=== PATIENT | male | born 1975 | race Native Hawaiian/Other Pacific Islander ===

== ENCOUNTER 2017-01-30 21:32 | Emergency (ER) | payer SELFPAY ==
[2017-01-30] MEDS ORDERED: HYDROmorphone 1 mg/ml ISec ONE ×3 (21:52→23:52)
[2017-01-30] MEDS ORDERED: HYDROmorphone 1 mg/ml ISec IVP STA ×3 (21:55→23:50)
[2017-01-30] MEDS ORDERED: Sodium Chloride 0.9% 1,000 ML IV ONE (21:55)
--- NOTE | 2017-01-30 21:57 | C.PDOC ---
History Of Present Illness 39 year old male presents to the ED with complaints of sudden onset mid- epigastric abdominal pain beginning about two hours prior to arrival. Patient states he was find, drinking, and eating normally at a constitution party when the symptoms began. He notes difficulty breathing and moving due to the pain. Patient denies any dysuria, fever, chills, diarrhea, or constipation. Chief Complaint (Nursing): Abdominal Pain History Per: Patient History/Exam Limitations: no limitations Onset/Duration Of Symptoms: Hrs, Sudden Onset Current Symptoms Are (Timing): Still Present Severity: Severe Pain Scale Rating Of: 8 Location Of Pain/Discomfort: Epigastric Quality Of Discomfort: "Pain" (patient describes as a "grabbing" pain) Associated Symptoms: denies: Fever, Chills, Vomiting, Diarrhea, Constipation, Urinary Symptoms Exacerbating Factors: Movement, Deep Breaths Recent travel outside of the [place]: No Past Medical History Reviewed: Historical Data, Nursing Documentation, Vital Signs Vital Signs: Last Vital Signs Temp 98 F 01/30/17 21:47 Pulse 86 01/31/17 01:08 Resp 16 01/31/17 01:08 BP 184/118 H 01/31/17 01:08 Pulse Ox 99 01/31/17 01:13 Family History: States: No Known Family Hx - Social History Hx Alcohol Use: No Hx Substance Use: No Review Of Systems Constitutional: Negative for: Fever, Chills, Sweats Cardiovascular: Negative for: Chest Pain, Palpitations Respiratory: Negative for: Cough, Shortness of Breath Gastrointestinal: Positive for: Abdominal Pain (mid-epigastric ). Negative for : Vomiting, Diarrhea, Constipation Genitourinary: Negative for: Dysuria, Hematuria Physical Exam - Physical Exam Appears: Non-toxic, In Acute Distress Skin: Normal Color, Warm, Dry Head: Atraumatic Eye(s): bilateral: Normal Inspection, PERRL, EOMI Oral Mucosa: Moist Neck: Normal ROM, Supple Chest: Symmetrical, No Deformity Cardiovascular: Rhythm Regular Respiratory: Normal Breath Sounds, No Rales, No Rhonchi, No Stridor, No Wheezing Gastrointestinal/Abdominal: No Bowel Sounds (quit bowel sounds), No Soft, Tenderness (diffuse tenderness), Distention, Guarding, No Rebound, Other (rigid) Extremity: Normal ROM, No Tenderness Pulses: Left Carotid: Normal, Right Carotid: Normal, Left Radial: Normal, Right Radial: Normal, Left Femoral: Normal, Right Femoral: Normal, Left Dorsalis Pedis : Decreased, Right Dorsalis Pedis: Decreased Neurological/Psych: Oriented x3, Normal Speech, Normal Cognition Gait: Steady ED Course And Treatment - Laboratory Results Result Diagrams: 01/30/17 21:59 01/30/17 21:59 Lab Interpretation: No Acute Changes ECG: Interpreted By Me ECG Rhythm: Sinus Rhythm (with LVH), R BBB (incomplete), ST/T Changes ECG Interpretation: Abnormal O2 Sat by Pulse Oximetry: 99 Pulse Ox Interpretation: Normal - Other Rad Obstructive series X-Ray: Interpreted by Me Interpretation: No evidence of obstruction or free air - CT Scan/US CT ABDOMEN/PELVIS IV CONTRAST Other Rad Studies (CT/US): Read By Radiologist, Radiology Report Reviewed CT/US Interpretation: EXAM: CT Abdomen and Pelvis With Intravenous Contrast. CLINICAL HISTORY: 39 years old, male; Pain; Abdominal pain; Generalized. TECHNIQUE: Axial computed tomography images of the abdomen and pelvis with intravenous contrast. This CT. exam was performed using one or more of the following dose reduction techniques: automated. exposure control, adjustment of the mA and/or kV according to patient size, and/or use of iterative. reconstruction technique. Coronal and sagittal reformatted images were created and reviewed. CONTRAST: 100 mL of VISIPAQUE administered intravenously. EXAM DATE/TIME: 01/30/2017 10:38 PM. COMPARISON: No relevant prior studies available. FINDINGS: There is an aortic dissection in the descending thoracic aorta. The superior extent cannot be. determined on this study . The dissection extends through the entire abdominal aorta and into left. common iliac artery and external iliac artery. The celiac axis, SMA, renal arteries, SUDHIR are all well. perfused. The dissection flap extends into the superior mesenteric artery. There is no periaortic fluid or stranding. PA LEONARDO | Preliminary Radiology Report. CERTIFIED COURT INTERPRETER (QA) DISCREPANCY? If there is a discrepancy between the preliminary and final interpretation, please notify [facility] via [email or web address]. If you do not have access to our QA portal, call our QA team at [phone]. CONFIDENTIALITY STATEMENT. This report is intended only for the use of the referring physician, and only in accordance with law, If you received this in error, call [phone]. Page 2 of 2. No aortic aneurysm. The liver is decreased in attenuation consistent with fatty infiltration. The spleen is normal. The pancreas is normal. No gallstones. No hydronephrosis or perinephric stranding. Right renal cyst. The bowel appears normal. A normal appendix is identified coronal images 58 through 66. IMPRESSION: Dissection involving the distal thoracic descending aorta, entire abdominal aorta, and left common. and external iliac arteries and SMA. The superior extent of the dissection cannot be determined on. this study (abdomen pelvis scanned, not chest). This could be either an acute or chronic finding. No. periaortic fluid. Progress Note: Patient continues to have severe pain associated with critically elevated blood pressure. Pain improved after several doses of Dilaudid IV. Labetolol 40mg IV given without results. IV Esmolol ordered. BP 184/118 on the left and 198/119 on the right. - Physician Consult Information Outcome Of Conversation: Case discussed with Dr Santoro Vascular government operations consultant at [facility] [place] [facility] [place]. He will accept patient for transfer. 1:20 [place] [facility] [place] [facility] [place]. Disposition - Disposition Disposition: Trans to Other Acute Care Hosp Disposition Time: 01:21 Condition: CRITICAL - Clinical Impression Clinical Impression: Aortic dissection, thoracoabdominal - Scribe Statement The provider has reviewed the documentation as recorded by the Scribe Jo Ann Correia All medical record entries made by the Tongibe were at my direction and personally dictated by me. I have reviewed the chart and agree that the record accurately reflects my personal performance of the history, physical exam, medical decision making, and the department course for this patient. I have also personally directed, reviewed, and agree with the discharge instructions and disposition.
[2017-01-30 22:02] LABS: BASO % 0.2 % (0.0-2.0); EOS # 0.2 K/uL (0.0-0.7); HEMATOCRIT 44.1 % (35.0-51.0); LYMPH # 5.1 K/uL (1.0-4.3); LYMPH % 41.2 % (20.0-40.0); MEAN CELL VOLUME 83.9 fL (80.0-94.0); MEAN CORPUSCULAR HEMOGLOBIN 28.5 pg (27.0-31.0); MEAN PLATELET VOLUME 7.5 fL (7.2-11.7); MONO # 0.8 K/uL (0.0-0.8); MONO % 6.6 % (0.0-10.0); RED CELL DISTRIBUTION WIDTH 12.6 % (11.5-14.5); WHITE BLOOD COUNT 12.4 K/uL (4.8-10.8)
[2017-01-30 22:13] LABS: CHLORIDE 97 mmol/L (98-107); POTASSIUM 3.5 mmol/L (3.6-5.2); SODIUM 140 mmol/L (132-148)
[2017-01-30 22:15] LABS: AST/SGOT 82 U/L (17-59); BILIRUBIN,TOTAL 0.7 mg/dL (0.2-1.3); CARBON DIOXIDE 27 mmol/L (22-30); GFR AFRICAN-AMERICAN > 60
[2017-01-30 22:16] LABS: ALB/GLOB RATIO 1.5 (1.0-2.1); ALKALINE PHOSPHATASE 57 U/L (38-126); ALT/SGPT 133 U/L (21-72); BLOOD UREA NITROGEN 21 mg/dL (9-20); CALCIUM 9.4 mg/dl (8.6-10.4); GLUCOSE,RANDOM 122 mg/dL (75-110); TOTAL PROTEIN 8.2 g/dL (6.3-8.3)
[2017-01-30] MEDS ORDERED: Iohexol 240 (50 ml) PO ONE (22:39)
[2017-01-30] MEDS ORDERED: Iohexol 240 (50 ml) ONE (22:46)
[2017-01-30] MEDS ORDERED: Iodixanol 320 MG/ML 100 ML BOTTLE IV ONE (23:24)
[2017-01-31] MEDS ORDERED: Iodixanol 320 mg/ml 150 ml Bottle IV ONE (00:05)
[2017-01-31] MEDS ORDERED: Labetalol 25mg/5ml Syringe IV STA ×2 (00:25→01:07)
[2017-01-31] MEDS ORDERED: Labetalol 25mg/5ml Syringe ONE ×2 (00:26→00:50)
[2017-01-31 00:53] VITALS: RESP 16
[2017-01-31 01:11] VITALS: O2SAT 99
[2017-01-31] MEDS ORDERED: Esmolol 2,500 MG in Sodium Chloride 0.9% 240 ML IV SCH (01:15)
[2017-01-31] MEDS ORDERED: Esmolol 2,500 MG in Dextrose 5% In Water 240 ML IV SCH (01:15)
[2017-01-31] MEDS ORDERED: HYDROmorphone 1 mg/ml ISec ONE (01:26)
[2017-01-31 01:35] VITALS: TEMP 97.6
[2017-01-31] MEDS ORDERED: HYDROmorphone 1 mg/ml ISec IVP STA (01:51)
[2017-01-31 01:59] VITALS: BP 184/89; PULSE 85
--- NOTE | 2017-01-31 07:37 | RAD ---
Abdomen four views History: Abdominal pain. Comparison: None available. Findings: Mild venous congestion. Lobulated opacity projects over the left lung apex, possibly external. Clinical correlation. Mild atelectasis at the right lung base. Heart size within normal limits. Few mildly dilated loops of small bowel seen within the upper to mid abdomen. Fecal retention in the colon. Few calcifications noted within the lower pelvis. Impression: Nonspecific bowel gas pattern with a few mildly dilated loops of small bowel within the upper to mid abdomen. Fecal retention in the colon.
--- NOTE | 2017-01-31 09:18 | CT ---
PROCEDURE: CT Abdomen and Pelvis with contrast HISTORY: abdominal pain COMPARISON: None. TECHNIQUE: Multiple contiguous axial images were performed through the abdomen and pelvis with intravenous contrast. Subsequently, sagittal and coronal re-formatted images were obtained. Radiation dose: Total exam DLP = three hundred sixty-seven mGy-cm. This CT exam was performed using one or more of the following dose reduction techniques: Automated exposure control, adjustment of the mA and/or kV according to patient size, and/or use of iterative reconstruction technique. FINDINGS: LOWER THORAX: 7 millimeter pulmonary nodule within the left lung laterally on series 3, image 3. LIVER: Fatty infiltration of the liver. GALLBLADDER AND BILE DUCTS: Unremarkable. PANCREAS: Unremarkable. No gross lesion or ductal dilatation. SPLEEN: Unremarkable. ADRENALS: Unremarkable. No mass. KIDNEYS AND URETERS: Rounded low-attenuation lesion in the midpole of the right kidney measuring 1.8 centimeters demonstrating Hounsfield unit attenuation of 7 suggestive for a cyst. VASCULATURE: Aortic dissection the descending thoracic aorta. Superior extent cannot be determined on this study. Dissection extends through the entire abdominal aorta and into the left common iliac artery and external iliac artery as well as the proximal aspect of the right common iliac artery. Celiac axis, SMA, renal arteries, and are all well perfused. Dissection flap extends into the superior mesenteric artery. BOWEL: Unremarkable. No obstruction. No gross mural thickening. APPENDIX: Normal appendix. PERITONEUM: Unremarkable. No free fluid. No free air. LYMPH NODES: Unremarkable. No enlarged lymph nodes. BLADDER: Unremarkable. REPRODUCTIVE: Heterogeneous prostate with calcifications. BONES: No acute fracture. OTHER FINDINGS: None. IMPRESSION: Aortic dissection involving the distal thoracic descending aorta, entire abdominal aorta, left common and left external iliac arteries and SMA and proximal right common iliac artery. Superior extent of the dissection cannot be determined on this study as the chest was not scanned. This is of indeterminate chronicity. Additional findings as above. These findings were preliminarily reported at 12:[address] Britany Abdi on 01/31/[address] [facility] Abdi relayed these critical findings to Dr. Zamorano at 12:39 a.m. on 01/31/2017.
--- NOTE | 2017-02-01 14:30 | CARD ---
APPROVED REPORT EKG Measurement Heart [id number] <Conclusion> Normal sinus rhythm Possible Left atrial enlargement Incomplete right bundle branch block Left ventricular hypertrophy Nonspecific T wave abnormality Abnormal ECG
== END 2017-01-31 02:15 | disposition short-term general hospital (02) ==
LOC: C.ER 21:32 → EDBD 21:32 → C.ER 01-31 02:15
DX: I71.03 Dissection of thoracoabdominal aorta (principal)
CPT/HCPCS: 74022; 74177; 80053; 83690; 85025; 93005; 96361; 96374; 96375; 96376; 99285; J1170; J7040; Q9965; Q9966; Q9967